=== PATIENT | female | born 2000 | race Caucasian/White ===

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

== ENCOUNTER 2021-03-17 14:51 | Outpatient (CLI) | payer OTHER, SELFPAY ==
--- NOTE | 2021-03-17 | ECG_ITS ---
Measurements Intervals [place] Rate: 78 P: 68 [place]: 135 QRS: 64 QRSD: 87 T: 66 QT: 377 QTc: 431 Interpretive Statements SINUS RHYTHM WITH SINUS ARRHYTHMIA NORMAL ECG Electronically Signed On 03-17-2021 19:54:57 CDT by Tobias Alcocer D.O.
== END 2021-03-17 14:52 | disposition home or self-care (01) ==
PROVIDERS: PCP Pediatrics; Visit Provider Pediatrics
DX: Z01.818 Encounter for other preprocedural examination (principal)
CPT/HCPCS: 93005